=== PATIENT | female | born 1970 | race Caucasian/White ===

== ENCOUNTER → 2020-08-26 | Outpatient (CLI) | payer OTHER ==
[~2020-08-26] MED LIST: ACTOS30 MG PO; CETIRIZINE HCL10 MG PO; FISH OIL 1,0001 EACH PO; GABAPENTIN800 MG PO; HYDROCODON-ACE1 EAC4 PO; LAMISIL AT 15 G15 GM TOP; LASIX TAB 20 MG20 MG PO; MECLIZINE HCL25 MG PO; MYCOSTATIN POWD15 GM TOP; OMEPRAZOLE20 MG PO; PROAIR DIGIHAL90 MCG INH; SIMVASTATIN80 MG PO; VITAMIN D21250 MCG PO
[2020-08-26 12:52] LABS: HEMOGLOBIN 13.6 gm/dl (12.3-15.3); RED BLOOD COUNT 5.03 M/UL (4.00-5.10); WHITE BLOOD COUNT 4.8 K/UL (4.5-11.0)
[2020-08-26 13:21] LABS: BUN/CREATININE RATIO 11 (0-10)
== END ==
LOC: OPSV2 11:18
PROVIDERS: Orthopaedic Surgery
DX: Z01.812 Encounter for preprocedural laboratory examination (principal); M67.432 Ganglion, left wrist
CPT/HCPCS: 36415; 80048; 85025

== ENCOUNTER 2020-09-03 17:28 | Emergency (ER) | payer OTHER ==
[~2020-09-03 17:28] MED LIST changes: -HYDROCODON-ACE1 EAC4 PO
[2020-09-12] MEDS ORDERED: HYDROCODON-ACE1 EAC4 PO (10:06)
== END 2020-09-03 17:55 | disposition left against medical advice (07) ==
LOC: ER1 17:28
DX: Z53.21 Procedure and treatment not carried out due to patient leaving prior to being seen by health care provider (principal)

== ENCOUNTER → 2020-09-12 | Day surgery (SDC) | payer OTHER ==
[~2020-09-12] VITALS: Ht 175.3 cm; Wt 122.0 kg
[~2020-09-12] MED LIST changes: +HYDROCODON-ACE1 EAC4 PO
== END | disposition home or self-care (01) ==
LOC: OR 09-05 08:15
DX: M67.432 Ganglion, left wrist (principal); E78.5 Hyperlipidemia, unspecified; K21.9 Gastro-esophageal reflux disease without esophagitis; K74.60 Unspecified cirrhosis of liver; E11.9 Type 2 diabetes mellitus without complications; Z88.5 Allergy status to narcotic agent; Z20.822 Contact with and (suspected) exposure to COVID-19; G47.30 Sleep apnea, unspecified; E66.01 Morbid (severe) obesity due to excess calories; Z68.41 Body mass index [BMI] 40.0-44.9, adult; F41.0 Panic disorder [episodic paroxysmal anxiety]; F32.9 Major depressive disorder, single episode, unspecified; M79.7 Fibromyalgia
CPT/HCPCS: 82962; J1100; J2001; J2250; J2405; J2704; J3010; J7120

== ENCOUNTER 2021-01-18 22:49 | Emergency (ER) | payer OTHER ==
[2021-01-19 00:15] LABS: HEMOGLOBIN 12.4 gm/dl (12.3-15.3); RED BLOOD COUNT 4.46 M/UL (4.00-5.10)
[2021-01-19 00:25] LABS: BUN/CREATININE RATIO 17 (0-10)
== END 2021-01-19 01:07 | disposition home or self-care (01) ==
LOC: ER1 22:49
PROVIDERS: Emergency Medicine
DX: M79.81 Nontraumatic hematoma of soft tissue (principal); K75.9 Inflammatory liver disease, unspecified
CPT/HCPCS: 36415; 73060; 80053; 85025; 85610; 99284